=== PATIENT | male | born 1980 | race Caucasian/White ===

== ENCOUNTER 2020-06-08 16:13 | Emergency (ER) | payer OTHER ==
[~2020-06-08] VITALS: Ht 190.5 cm; Wt 114.1 kg
[~2020-06-08 16:13] MED LIST: ALBU6.7H9 INH
--- NOTE | 2020-06-08 19:37 | NUR ---
Patient ambulates to fast track. 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 Complaint of tingling to lower anterior leg now. Good left dorsalis pedis. Good distal color.
--- NOTE | 2020-06-08 19:41 | NUR ---
Note isatu in EDM - 06/08/20 at 1946 by MICHELLE Color is improved. Patient given a blanket. B/P 108/70 Pulse 75 14 Resp 14 NSR. Patient complains of no discomfort at this time.
[2020-06-08 20:36] VITALS: BP 133/79
== END 2020-06-08 20:50 | disposition home or self-care (01) ==
LOC: ER 16:14
DX: S93.602A Unspecified sprain of left foot, initial encounter (principal); Z88.1 Allergy status to other antibiotic agents; Z88.5 Allergy status to narcotic agent; Z79.899 Other long term (current) drug therapy; X58.XXXA Exposure to other specified factors, initial encounter; Y93.89 Activity, other specified; Y92.89 Other specified places as the place of occurrence of the external cause; Y99.8 Other external cause status
CPT/HCPCS: 73590; 73630; 99284